=== PATIENT | female | born 1955 | race Caucasian/White ===

== ENCOUNTER → 2017-09-16 | Outpatient (CLI) | payer OTHER ==
--- NOTE | 2017-09-17 11:21 | MAM ---
EXAM DESCRIPTION: Screening Mammogram,Bilateral: Digital Mammography CLINICAL HISTORY: 61 years Female SCREENING . No complaints. No family history of breast cancer. Postmenopausal. No HRT. COMPARISON: 2-D digital screening bilateral studies 02/20/2016 and 06/10/2012.. No prior reports available. TECHNIQUE: Bilateral CC and MLO projection full-field images, 2-D digital screening mammographic technique. CAD was utilized. FINDINGS: The breast parenchymal density pattern is: Scattered areas of fibroglandular density. No skin thickening or nipple retraction bilateral solitary microcalcifications. Bilateral intramammary lymph nodes. No focal, stellate mass or density, focal asymmetry , and no suspicious microcalcifications bilaterally. Stable mammograms compared to the prior study (June 2012), taking into account differences in mammographic technique. IMPRESSION: BI-RADS CATEGORY: 2 - BENIGN FINDINGS. FOLLOW UP: Routine digital bilateral screening, one year interval from September 2017 Written communication explaining the IMPRESSION and follow-up, will be mailed to the patient and referring health care provider. According to the [employer], yearly mammograms are recommended starting at age 40 and continuing as long as a woman is in good health. Any breast change noted on a breast self-exam should be reported promptly to the patient's healthcare provider. Breast MRI is recommended for women with an approximately 20-25% or greater lifetime risk of breast cancer, including women with a strong family history of breast or ovarian cancer and women who have been treated for Hodgkin's disease. A negative mammographic report should not delay tissue diagnosis in patients with significant clinical history or physical findings. Extremely dense breast tissue limits the sensitivity of digital mammography. Electronically signed by: Harshad Horton MD 09/17/2017 11:20 AM CDT
== END | disposition home or self-care (01) ==
LOC: MAMMO 10:16
PROVIDERS: ATTEND Family Medicine
DX: Z12.31 Encounter for screening mammogram for malignant neoplasm of breast (principal)

== ENCOUNTER → 2017-11-14 | Outpatient (CLI) | payer OTHER | END | disposition home or self-care (01) | LOC: GMAL 10:43 | PROVIDERS: ATTEND Family Medicine | DX: D53.9 Nutritional anemia, unspecified (principal); R53.82 Chronic fatigue, unspecified; E55.9 Vitamin D deficiency, unspecified ==

== ENCOUNTER → 2018-07-29 | Outpatient (CLI) | payer OTHER | LOC: GMAL 10:32 | PROVIDERS: ATTEND Family Medicine | DX: E55.9 Vitamin D deficiency, unspecified (principal) ==

== ENCOUNTER → 2018-09-23 | Outpatient (CLI) | payer BC, OTHER ==
--- NOTE | 2018-09-24 14:41 | MAM ---
EXAM DESCRIPTION: 3D Screening BILATERAL : Digital Mammography. CLINICAL HISTORY: 62 years Female SCREENING .. No complaints. No personal or family history of breast cancer. Childbirth after age 34. Postmenopausal. No HRT. Lifetime risk of developing breast cancer (Tyrer-Cuzick model)(%): 9.1. COMPARISON: 2-D screening bilateral mammography 09/16/2017.. TECHNIQUE: Bilateral CC and MLO projection full-field images, Digital tomosynthesis mammographic technique. Bilateral digital 2-D full-field MLO images. CAD not utilized. FINDINGS: The breast parenchymal density pattern is: Scattered areas of fibroglandular density. No skin thickening or nipple retraction. Stable upper outer quadrant right breast intramammary node. No new focal, stellate mass or density, focal asymmetry , and no suspicious microcalcifications bilaterally. Stable mammograms compared to prior study. IMPRESSION: Benign exam. BIRAD CATEGORY: 2 BENIGN FINDINGS. RECOMMENDATIONS: FOLLOW UP: Routine digital bilateral screening, one year interval from September 2018. Written communication explaining the IMPRESSION and follow-up, will be mailed to the patient and referring health care provider. According to the [employer], yearly mammograms are recommended starting at age 40 and continuing as long as a woman is in good health. Any breast change noted on a breast self-exam should be reported promptly to the patient's healthcare provider. Breast MRI is recommended for women with an approximately 20-25% or greater lifetime risk of breast cancer, including women with a strong family history of breast or ovarian cancer and women who have been treated for Hodgkin's disease. A negative mammographic report should not delay tissue diagnosis in patients with significant clinical history or physical findings. Extremely dense breast tissue limits the sensitivity of digital mammography. Electronically signed by: Harshad Horton MD 09/24/2018 2:40 PM CDT
== END ==
LOC: MAMMO 08:08
PROVIDERS: ATTEND Family Medicine
DX: Z12.31 Encounter for screening mammogram for malignant neoplasm of breast (principal)

== ENCOUNTER → 2018-10-02 | Outpatient (CLI) | payer BC ==
--- NOTE | 2018-10-02 13:04 | US ---
EXAM DESCRIPTION: Liver CLINICAL HISTORY: ELEVATED LFT'S COMPARISON: None Available. TECHNIQUE: Right upper quadrant ultrasound FINDINGS: Pancreas: Visualized portions of the pancreas are unremarkable. Bowel gas obscures some areas. Aorta/inferior vena cava: No aortic aneurysm. Normal inferior vena cava. Liver: The liver is homogeneous in texture with increased echogenicity suggesting hepatic steatosis. Liver length is normal measured at 16.8 cm. No focal liver lesion or intrahepatic bile duct dilatation. No liver surface irregularity. Normal appearance of the portal vein and hepatic veins. Gallbladder: Not seen, said to be surgically absent. Common bile duct: Prominent caliber measuring 8.2 mm. Right kidney: Renal length is 9.8 cm. Normal cortical echogenicity. Cortical thickness is normal. No hydronephrosis is seen. No renal mass or shadowing calculus. IMPRESSION: Diffuse hepatic steatosis. Otherwise no acute upper abdominal process. Electronically signed by: Tigre Ruiz MD 10/02/2018 1:03 PM CDT
== END ==
LOC: LAB.O 08:44
PROVIDERS: ATTEND Family Medicine
DX: R94.5 Abnormal results of liver function studies (principal); K76.0 Fatty (change of) liver, not elsewhere classified

== ENCOUNTER → 2018-12-11 | Outpatient (CLI) | payer BC | LOC: RESP 13:40 | PROVIDERS: ATTEND Physician Assistant | DX: R00.1 Bradycardia, unspecified (principal); R00.2 Palpitations ==

== ENCOUNTER → 2019-12-31 | Outpatient (CLI) | payer MEDICARE, OTHER | LOC: GMAL 10:32 | PROVIDERS: ATTEND Family Medicine | DX: E53.8 Deficiency of other specified B group vitamins (principal); E78.49 Other hyperlipidemia; R53.82 Chronic fatigue, unspecified; E55.9 Vitamin D deficiency, unspecified; I10 Essential (primary) hypertension; R94.5 Abnormal results of liver function studies ==

== ENCOUNTER → 2020-03-30 | Outpatient (CLI) | payer MEDICARE, OTHER | LOC: GMAL 16:17 | PROVIDERS: ATTEND Family Medicine | DX: M25.562 Pain in left knee (principal) ==

== ENCOUNTER → 2020-04-15 | Outpatient (CLI) | payer MEDICARE, OTHER ==
--- NOTE | 2020-04-15 09:52 | MRI ---
EXAM DESCRIPTION: Knee,Left CLINICAL HISTORY: 64 years Female, KNEE PAIN COMPARISON: None. TECHNIQUE: Noncontrast multiplanar multisequence magnetic resonance imaging of the left knee. FINDINGS: Circumferential free edge degenerative tearing of the medial meniscus is present. Less pronounced free edge degeneration seen on the lateral meniscus. Mucoid degenerative-type signal is present throughout the intact posterior and anterior cruciate ligaments. Medial collateral and fibular collateral ligaments are maintained. Extensor mechanism is intact. Diffuse cartilage loss is present along the weightbearing surface of the medial compartment with small areas of subchondral cystlike formation indicative of grade 4 chondrosis. Grade 3-4 cartilage fibrillation nonfocal central weightbearing surface lateral compartment. Nonfocal extensive cartilage loss medial patellar facet extending towards the apex consistent with grade 4 chondrosis. Mild to nonfocal cartilage fibrillation lateral patellar facet. Accessory ossification center of the patella incidentally noted. Large knee joint effusion is present. Multilobulated ganglion type cyst is present at the expected location of the pes anserine bursa. Mucoid degeneration proximal attachment lateral head of the gastrocnemius with a small ganglion cyst formation. IMPRESSION: Advanced tricompartmental chondrosis/early osteoarthritis. Large joint effusion. Degenerative free edge tearing of the medial and lateral meniscus. Pes anserinus bursitis Intact cruciate and collateral ligaments. Electronically signed by: Francisco Javier Anand MD 04/15/2020 9:50 AM CDT
== END ==
LOC: MRI 08:00
PROVIDERS: ATTEND Family Medicine
DX: M70.52 Other bursitis of knee, left knee (principal); M23.362 Other meniscus derangements, other lateral meniscus, left knee; M23.332 Other meniscus derangements, other medial meniscus, left knee

== ENCOUNTER → 2020-08-23 | Outpatient (CLI) | payer MEDICARE, OTHER | LOC: GMAL 14:19 | PROVIDERS: ATTEND Family Medicine | DX: D51.3 Other dietary vitamin B12 deficiency anemia (principal); E55.9 Vitamin D deficiency, unspecified; E78.49 Other hyperlipidemia; Z79.899 Other long term (current) drug therapy ==

== ENCOUNTER 2020-10-05 10:01 | Emergency (ER) | payer MEDICARE, OTHER ==
[2020-10-05] MEDS ORDERED: SODIUM CHLORIDE 0.9% 1000ML 1,000 ML IVS ONE (10:11)
--- NOTE | 2020-10-05 10:14 | ED.PDOC ---
History of Present Illness - General Time Seen by Provider: 10/05/20 10:10 Source: patient, RN notes reviewed Exam Limitations: no limitations Additional Information: 64-year-old female, presents to the ER because of rectal bleeding. Patient st ated that she started having dark stools on Saturday, then on Saturday she started having some bright red blood, and today she felt like she was passing blood clots. 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 Patient denies any hx of cancer denies blood thinners denies unwanted weight loss admits chills but denies night sweats. History of hypertension Also mentioned that she has had this in the midepigastric area ever since she started having the GI bleed Patient denies fever chills coughing - History of Present Illness Allergies/Adverse Reactions: Allergies NO KNOWN ALLERGY Allergy (Unverified 05/26/15 15:32) Home Medications: Ambulatory Orders Esomeprazole Magnesium [Nexium] 40 mg PO DAILY 05/26/15 Lisinopril 40 mg PO DAILY 05/26/15 Amlodipine Besylate 2.5 mg PO DAILY 10/05/20 Atorvastatin Calcium 40 mg PO 10/05/20 BuPROPion XL [Wellbutrin XL] 150 mg PO DAILY 10/05/20 Vortioxetine HBr [Trintellix] 20 mg PO DAILY 10/05/20 Review of Systems - Review of Systems Constitutional: States: no symptoms reported EENTM: States: no symptoms reported Respiratory: States: no symptoms reported Cardiology: States: no symptoms reported, chest pain Gastrointestinal/Abdominal: States: abdominal pain Genitourinary: States: no symptoms reported Musculoskeletal: States: no symptoms reported Skin: States: no symptoms reported Neurological: States: no symptoms reported Endocrine: States: no symptoms reported Hematologic/Lymphatic: States: no symptoms reported Past Medical History (General) - Patient Medical History Hx Stroke: No Hx Congestive Heart Failure: No Hx Hypertension: Yes Hx Diabetes: No Hx Cancer: No - 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, benign - Vaccination History Hx Influenza Vaccination: Yes Hx Pneumococcal Vaccination: No - Social History Hx Tobacco Use: Yes Family Medical History - Family History Mother Living Status: Hx Family Hypertension: Yes Hx Family Stroke: Yes Physical Exam - Physical Exam General Appearance: Well Developed, Well Groomed, Well Hydrated Eye Exam: bilateral normal Ears, Nose, Throat: hearing grossly normal, normal ENT inspection, normal pharynx Neck: non-tender, full range of motion, supple, normal inspection Respiratory: chest non-tender, lungs clear, normal breath sounds, no respiratory distress, no accessory muscle use Cardiovascular/Chest: normal peripheral pulses, regular rate, rhythm, no edema, no gallop, no JVD, no murmur Peripheral Pulses: radial,right: 2+, radial,left: 2+ Gastrointestinal/Abdominal: normal bowel sounds, non tender, soft, no organomegaly, no pulsatile mass Rectal Exam: black stool, hemorrhoids, other Back Exam: normal inspection, no CVA tenderness, no vertebral tenderness Extremity: normal range of motion, non-tender, normal inspection, no pedal edema, no calf tenderness 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 That she had a colonoscopy about 4 years ago and no pain no history of cancer, patient also mentioned that she has had allergies substernal chest discomfort which she describes as a knot in the epigastric area, patient has no previous history of cancer or history of strokes or history of acute coronary syndrome. Patient EKG showed a normal sinus rhythm with a heart rate of 71 with hyperacute T waves without the presence of ST elevation or depressions. Patient troponin came back at .07 which is considered normal so I order head dose of aspirin. And hemoglobin was 9.3 but patient Hemoccult was positive for blood. pneumonia or while he mediastinum to suggest aortic dissection. Patient will need to be transferred to a higher level of care facility since we do not have a automatic drilling machine operator available, and also patient abnormal troponins may suggest an acute coronary syndrome. BUN was elevared with creatinine was normal, CO2 was 19 , the elevated BUN and low CO2 are due to GI bleeding and not to acute heart failure I will order a dose of aspirin jania will hold the lovenox due to patient's gi bleeding Departure - Departure Clinical Impression: Acute coronary syndrome GI bleeding Qualifiers: GI bleed type/associated pathology: unspecified gastrointestinal hemorrhage type Qualified Code(s): K92.2 - Gastrointestinal hemorrhage, unspecified Disposition: Transfer to Hospital Condition: Fair Referrals: Choco Arnett III, MD [Primary Care Provider] - 1-2 Weeks Home Medications: Ambulatory Orders Esomeprazole Magnesium [Nexium] 40 mg PO DAILY 05/26/15 Lisinopril 40 mg PO DAILY 05/26/15 Amlodipine Besylate 2.5 mg PO DAILY 10/05/20 Atorvastatin Calcium 40 mg PO 10/05/20 BuPROPion XL [Wellbutrin XL] 150 mg PO DAILY 10/05/20 Vortioxetine HBr [Trintellix] 20 mg PO DAILY 10/05/20 Transfer to Outside Facility - Transfer Information Decision to Transfer Date: 10/05/20 Decision to Transfer Time: 10:53 Reason for Transfer: specialized care not available Accepting Facility: [facility]
--- NOTE | 2020-10-05 10:37 | RAD ---
Study: Single Frontal Radiograph of the Chest. Indication:chest pain Comparison: None Impression: Heart size normal. Elevation right hemidiaphragm with mild right basilar atelectasis versus developing pneumonia. Short term follow-up recommended. No pleural effusion or pneumothorax. No acute osseous abnormality. Electronically signed by: Deuce Medina MD 10/05/2020 10:36 AM [facility]
[2020-10-05] MEDS ORDERED: ASPIRIN TABLET 325 MG TAB PO ONE (10:51)
[2020-10-05 12:20] VITALS: O2SAT 99
[2020-10-05 13:30] VITALS: BP 103/62; TEMP 1255
== END 2020-10-05 12:55 | disposition short-term general hospital (02) ==
LOC: ER 10:01
DX: K62.5 Hemorrhage of anus and rectum (principal); I24.9 Acute ischemic heart disease, unspecified; R10.13 Epigastric pain; I10 Essential (primary) hypertension; Z79.899 Other long term (current) drug therapy
CPT/HCPCS: 36415; 71045; 80053; 82270; 84484; 85025; 93005; J7030

== ENCOUNTER 2020-10-08 12:44 | Emergency (ER) | payer MEDICARE, OTHER ==
--- NOTE | 2020-10-08 13:01 | ED.PDOC ---
History of Present Illness - General Time Seen by Provider: 10/08/20 12:45 Source: patient, RN notes reviewed, Vital Signs reviewed, old records - History of Present Illness Initial Comments: 64 yo F presents with one day of weakness, shortness of breath, nausea and dizziness. Was released from the hospital yesterday where she was admitted for elevated troponin and GI bleed. She had EGD and colonoscopy which showed polyps and old gastric ulcer. Yesterday had an iron infusion and a pneumonia vaccine. today she woke up just not feeling well. Cthis morning has had multiple bloody bm, no black. Allergies/Adverse Reactions: Allergies NO KNOWN ALLERGY Allergy (Unverified 05/26/15 15:32) Home Medications: Ambulatory Orders Esomeprazole Magnesium [Nexium] 40 mg PO DAILY 05/26/15 Lisinopril 40 mg PO DAILY 05/26/15 Amlodipine Besylate 2.5 mg PO DAILY 10/05/20 Atorvastatin Calcium 40 mg PO 10/05/20 BuPROPion XL [Wellbutrin XL] 150 mg PO DAILY 10/05/20 Vortioxetine HBr [Trintellix] 20 mg PO DAILY 10/05/20 Review of Systems - Review of Systems Constitutional: States: malaise. Denies: chills, fever EENTM: Denies: double vision, ear pain, throat pain Respiratory: States: short of breath. Denies: cough, stridor Cardiology: States: palpitations. Denies: chest pain, syncope Gastrointestinal/Abdominal: Denies: abdominal pain, diarrhea, nausea, vomiting Genitourinary: Denies: dysuria, frequency, hematuria Musculoskeletal: Denies: joint pain, joint swelling, muscle pain, muscle stiffness Skin: Denies: dryness, lesions, rash Neurological: Denies: headache, numbness, paresthesia, seizure, tingling, tremors Endocrine: Denies: unexplained weight gain, unexplained weight loss Hematologic/Lymphatic: States: easy bruising. 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, benign - Vaccination History Hx Influenza Vaccination: Yes Hx Pneumococcal Vaccination: No - Social History Hx Tobacco Use: Yes Family Medical History - Family History Mother Living Status: Hx Family Hypertension: Yes Hx Family Stroke: Yes Physical Exam - Physical Exam General Appearance: Alert, Anxious, No apparent distress, Well Developed, Well Groomed, Well Hydrated, Well Nourished Eye Exam: bilateral normal Ears, Nose, Throat: hearing grossly normal, normal ENT inspection, normal pharynx Neck: non-tender, full range of motion, supple, normal inspection Respiratory: chest non-tender, lungs clear, normal breath sounds, no respiratory distress, no accessory muscle use Cardiovascular/Chest: normal peripheral pulses, regular rate, rhythm, no edema, no gallop, no JVD, no murmur Peripheral Pulses: radial,right: 2+, radial,left: 2+ Gastrointestinal/Abdominal: normal bowel sounds, non tender, soft, no organomegaly, no pulsatile mass Rectal Exam: normal rectal tone, heme positive stool, other - maroon stool Back Exam: normal inspection, no CVA tenderness, no vertebral tenderness Extremity: normal range of motion, non-tender, normal inspection, no pedal edema, no calf tenderness, normal capillary refill 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 IV access established. 500ml bolus given. Hgb 6.6, patient unsure what hgb was on discharge. Patient consent signed for blood - 2 units given. 80 mg IV pantoprazole given. The data reviewed when caring for this patient included: nurse notes, prior records, etc. The history and assessments from nurses notes were reviewed and considered, and the patient's home medication list was also reviewed and c onsidered. My assessment and the results of testing completed here in the ED were discussed with the patient/family. All questions were answered, and they express understanding of my assessment and the plan. Luci Krishna DO #[id number] - EKG/XRAY/CT EKG: Sinus, LVH, Unchanged from 10/05/2020 Comments: normal intervals, no acute ischemia. XRAY: chest - no acute pathology - Consult/PCP Time Called: 13:35 Consult/PCP: Dr. Musa Zapien accepted for transfer. Departure - Departure Clinical Impression: GI bleed not requiring more than 4 units of blood in 24 hours, ICU, or surgery Disposition: Transfer to Hospital Home Medications: Ambulatory Orders Esomeprazole Magnesium [Nexium] 40 mg PO DAILY 05/26/15 Lisinopril 40 mg PO DAILY 05/26/15 Amlodipine Besylate 2.5 mg PO DAILY 10/05/20 Atorvastatin Calcium 40 mg PO 10/05/20 BuPROPion XL [Wellbutrin XL] 150 mg PO DAILY 10/05/20 Vortioxetine HBr [Trintellix] 20 mg PO DAILY 10/05/20 Transfer to Outside Facility - Transfer Information Decision to Transfer Date: 10/08/20 Decision to Transfer Time: 13:40 Reason for Transfer: specialized care not available Accepting Facility: [facility]
[2020-10-08] MEDS ORDERED: SODIUM CHLORIDE 0.9% 500ML 500 ML IVS ONE (13:42)
--- NOTE | 2020-10-08 13:42 | RAD ---
PROCEDURE:XR CHEST 1 VIEW HISTORY:sob COMPARISON: October 05, 2020 FINDINGS: The heart appears unremarkable. The lungs are clear there is no alveolar consolidation, effusion or pneumothorax. There are no acute bony or soft tissue abnormalities. IMPRESSION: No acute cardiopulmonary process. Electronically signed by: Arnav Velasco MD 10/08/2020 1:41 PM [facility]
[2020-10-08] MEDS ORDERED: diphenhydrAMINE HCL 50 MG/ML VIAL IV ONE (13:56)
[2020-10-08] MEDS ORDERED: ACETAMINOPHEN 325 MG TAB PO ONE (13:56)
[2020-10-08] MEDS ORDERED: PANTOPRAZOLE INJECTION 80 MG in SODIUM CHLORIDE 0.9% 100ML 80 ML IVPB ONE (14:00)
[2020-10-08] MEDS ORDERED: SODIUM CHLORIDE 0.9% 500ML 500 ML IVS SCH (14:00)
[2020-10-08 16:02] VITALS: BP 100/49; TEMP 97.8; O2SAT 100
== END 2020-10-08 16:10 | disposition short-term general hospital (02) ==
LOC: ER 12:44
DX: K92.1 Melena (principal); I51.7 Cardiomegaly; R06.02 Shortness of breath; R42 Dizziness and giddiness; I10 Essential (primary) hypertension; Z87.11 Personal history of peptic ulcer disease; Z98.890 Other specified postprocedural states; Z79.899 Other long term (current) drug therapy; Z87.891 Personal history of nicotine dependence; Z20.828 Contact with and (suspected) exposure to other viral communicable diseases
CPT/HCPCS: 36415; 71045; 80053; 83690; 83735; 83880; 84443; 84484; 85025; 85379; 85610; 85730; 86850; 86900; 86901; 86922; 87486; 87581; 87633; 87635; 93005; J1200; J7040; J7050; P9016

== ENCOUNTER → 2021-01-04 | Outpatient (CLI) | payer MEDICARE, OTHER | LOC: GMAL 12:11 | PROVIDERS: ATTEND Family Medicine | DX: D51.3 Other dietary vitamin B12 deficiency anemia (principal); E55.9 Vitamin D deficiency, unspecified; R73.09 Other abnormal glucose; Z79.899 Other long term (current) drug therapy; E78.49 Other hyperlipidemia ==